=== PATIENT | female | born 1970 ===

== ENCOUNTER 2023-03-17 12:41 | Emergency (ER) | payer SELFPAY ==
[2023-03-17 12:47] VITALS: BP 185/98
[2023-03-17 13:57] LABS: BASOPHILS % (AUTO) 1 % (0-10); EOSINOPHILS # (AUTO) 0.2 10^3/uL (0.0-0.3); EOSINOPHILS % (AUTO) 4 % (0-10); HEMATOCRIT 39 % (35-52); HEMOGLOBIN 13.4 g/dL (11.5-16.0); LYMPHOCYTES # (AUTO) 2.1 10^3/uL (1.0-4.0); LYMPHOCYTES % (AUTO) 34 % (12-44); MEAN CORPUSCULAR HEMOGLOBIN 33 pg (25-34); MEAN CORPUSCULAR HGB CONC 34 g/dL (32-36); MEAN CORPUSCULAR VOLUME 97 fL (80-99); MEAN PLATELET VOLUME 11.2 fL (9.0-12.2); MONOCYTES # (AUTO) 0.5 10^3/uL (0.0-1.0); MONOCYTES % (AUTO) 8 % (0-12); NEUTROPHILS # (AUTO) 3.4 10^3/uL (1.8-7.8); NEUTROPHILS % (AUTO) 54 % (42-75); PLATELET COUNT 144 10^3/uL (130-400); WHITE BLOOD COUNT 6.2 10^3/uL (4.3-11.0)
[2023-03-17 14:01] LABS: ALBUMIN 3.9 GM/DL (3.2-4.5)
[2023-03-17 14:02] LABS: CHLORIDE 106 MMOL/L (98-107); POTASSIUM 3.9 MMOL/L (3.6-5.0); SODIUM 137 MMOL/L (135-145)
[2023-03-17 14:03] LABS: AMYLASE 59 U/L (25-125); CALCIUM 9.1 MG/DL (8.5-10.1); INR 1.1 (0.8-1.4)
[2023-03-17 14:04] LABS: GLUCOSE 235 MG/DL (70-105); TOTAL PROTEIN 7.7 GM/DL (6.4-8.2)
[2023-03-17 14:05] LABS: CARBON DIOXIDE 19 MMOL/L (21-32)
--- NOTE | 2023-03-17 14:05 | ED General ---
General Chief Complaint: Dizziness/Syncope Stated Complaint: STROKE-LIKE SYMPTOMS Nursing Triage Note: Patient c/o dizziness, being light-headed, vomiting, nausea, and headache that started 1 wk ago. Patient denies vomiting in last 24 hrs or different diarrhea than her normal. Patient denies any chest pain or shortness of breath. Patient states some of her symptoms have improved last couple days. Patient denies any weakness to any extremity. Patient denies any fevers. Patient states she was Dx. with a sinus infection earlier this week. Patient states she had a negative Covid test earlier this week. Source of Information: Patient History of Present Illness Date Seen by Provider: Mar 17, 2023 Time Seen by Provider: 13:40 Initial Comments PT ARRIVES VIA POV WITH /MALE S.O. SHE WAS SENT HERE BY [facility] PT STATES SHE HAS BEEN SICK FOR THE LAST WEEK WITH: -DIZZINESS AND FEELING OFF BALANCE -HAD FEVER OF 99.6 LAST WEEKEND, NONE SINCE -HEADACHE OF AND ON TO BACK OF HEAD--NOT NOW -NAUSEA/VOMITING--NO VOMITING SINCE LAST MONDAY. STILL HAS OCCASIONAL NAUSEA OFF AND ON -HAS CHRONIC DIARRHEA--UNCHANGED;STATES THIS IS FROM [place] -HAS CHRONIC BODY ACHES--UNCHANGED PT WENT TO [facility] ON MONDAY AND WAS TOLD SHE HAD A SINUS INFECTION, AND WAS PRESCRIBED MECLIZINE AND TOLD TO TAKE FLONASE AND ZYRTEC. NO ANTIBIOTIC PRESCRIBED. COVID TEST NEGATIVE SHE TOOK MECLIZINE ON MONDAY BUT NOT SINCE--STATES IT MAKES HER TOO TIRED. SHE STATES IT DID HELP WITH THE DIZZINESS. NO CHEST PAIN NO SHORTNESS OF BREATH NO ABDOMINAL PAIN NO PARESTHESIAS OR MOTOR DEFICITS NO PALPITATIONS NO SYNCOPE PT IS DIABETIC ON METFORMIN--BLOOD GLUCOSE 254 AT [facility] SHE HAS HTN NO OTHER CHRONIC MEDICAL PROBLEMS PT IS MENOPAUSAL SHE HAS HAD PRIOR CHOLECYSTECTOMY DENIES SMOKING, ALCOHOL OR DRUG USE COVID VACCINES X 3 PCP: [facility] Allergies and Home Medications Allergies Coded Allergies: No Known Allergies (Verified Allergy, Unknown, 03/17/23) Patient Home Medication List Home Medication List Reviewed: Yes Cefdinir (Cefdinir) 300 Mg Capsule, 300 MG PO BID Prescribed by: MILLIE OVALLES on 03/17/23 1442 Scopolamine (Transderm-Scop) 1 Mg/3 Day Patch.td72, 1 EACH TD Q72H Prescribed by: MILLIE OVALLES on 03/17/23 1442 Review of Systems Review of Systems Constitutional: see HPI, dizziness, fever EENTM: see HPI, no symptoms reported; No ear pain, No nose congestion, No throat pain Respiratory: no symptoms reported Cardiovascular: no symptoms reported Gastrointestinal: see HPI Genitourinary: no symptoms reported Musculoskeletal: see HPI Skin: no symptoms reported Psychiatric/Neurological: See HPI Hematologic/Lymphatic: No Symptoms Reported Immunological/Allergic: no symptoms reported Past Rnofxwe-Zrpsku-Kigxkr Hx Patient Social History Tobacco Use?: No Use of E-Cig and/or Vaping dev: No Substance use?: No Alcohol Use?: No Immunizations Up To Date Influenza Vaccine Up-to-Date: Yes; Up-to-Date Past Medical History Surgery/Hospitalization HX: DM, HTN Surgeries: Yes Gallbladder Respiratory: No Cardiac: Yes Hypertension 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 oz. 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 ) Skin: Normal Color, Warm/Dry; No Rash Progress/Results/Core Measures Suspected Sepsis SIRS Temperature: Pulse: 83 Respiratory Rate: 14 Laboratory Tests 03/17/23 13:03: White Blood Count 6.2 Blood Pressure 185 /98 Mean: 127 Laboratory Tests 03/17/23 13:03: Creatinine 0.63, INR Comment 1.1, Platelet Count 144, Total Bilirubin 0.4 Results/Orders Lab Results Laboratory Tests Test 03/17/23 13:03 03/17/23 13:57 03/17/23 13:59 Range/Units White Blood Count 6.2 4.3-11.0 10^3/uL Red Blood Count 4.08 3.80-5.11 10^6/uL Hemoglobin 13.4 11.5-16.0 g/dL Hematocrit 39 35-52 % Mean Corpuscular Volume 97 80-99 fL Mean Corpuscular Hemoglobin 33 25-34 pg Mean Corpuscular Hemoglobin Concent 34 32-36 g/dL Red Cell Distribution Width 13.3 10.0-14.5 % Platelet Count 144 130-400 10^3/uL Mean Platelet Volume 11.2 9.0-12.2 fL Immature Granulocyte % (Auto) 0 % Neutrophils (%) (Auto) 54 42-75 % Lymphocytes (%) (Auto) 34 12-44 % Monocytes (%) (Auto) 8 0-12 % Eosinophils (%) (Auto) 4 0-10 % Basophils (%) (Auto) 1 0-10 % Neutrophils # (Auto) 3.4 1.8-7.8 10^3/uL Lymphocytes # (Auto) 2.1 1.0-4.0 10^3/uL Monocytes # (Auto) 0.5 0.0-1.0 10^3/uL Eosinophils # (Auto) 0.2 0.0-0.3 10^3/uL Basophils # (Auto) 0.0 0.0-0.1 10^3/uL Immature Granulocyte # (Auto) 0.0 0.0-0.1 10^3/uL Prothrombin Time 14.0 12.2-14.7 SEC INR Comment 1.1 0.8-1.4 Activated Partial Thromboplast Time 34 24-35 SEC Sodium Level 137 135-145 MMOL/L Potassium Level 3.9 3.6-5.0 MMOL/L Chloride Level 106 98-107 MMOL/L Carbon Dioxide Level 19 L 21-32 MMOL/L Anion Gap 12 5-14 MMOL/L Blood Urea Nitrogen 7 7-18 MG/DL Creatinine 0.63 0.60-1.30 MG/DL Estimat Glomerular Filtration Rate 107 BUN/Creatinine Ratio 11 Glucose Level 235 H 70-105 MG/DL Calcium Level 9.1 8.5-10.1 MG/DL Corrected Calcium 9.2 8.5-10.1 MG/DL Magnesium Level 1.6 1.6-2.4 MG/DL Total Bilirubin 0.4 0.1-1.0 MG/DL Aspartate Amino Transf (AST/SGOT) 64 H 5-34 U/L Alanine Aminotransferase (ALT/SGPT) 84 H 0-55 U/L Alkaline Phosphatase 203 H 40-136 U/L Troponin I < 0.028 <0.028 NG/ML Total Protein 7.7 6.4-8.2 GM/DL Albumin 3.9 3.2-4.5 GM/DL Amylase Level 59 25-125 U/L Lipase 50 8-78 U/L TSH [place] Testing 3.10 0.35-4.94 UIU/ML Influenza Type A (RT-PCR) Not Detected Not Detecte Influenza Type B (RT-PCR) Not Detected Not Detecte SARS-CoV-2 RNA (RT-PCR) Not Detected Not Detecte Urine Color YELLOW Urine Clarity CLEAR Urine pH 5.5 5-9 Urine Specific [place] <=1.005 1.016-1.022 Urine Protein NEGATIVE NEGATIVE Urine Glucose (UA) TRACE H NEGATIVE Urine Ketones NEGATIVE NEGATIVE Urine Nitrite NEGATIVE NEGATIVE Urine Bilirubin NEGATIVE NEGATIVE Urine Urobilinogen 0.2 < = 1.0 MG/DL Urine Leukocyte Esterase NEGATIVE NEGATIVE Urine RBC (Auto) NEGATIVE NEGATIVE Urine RBC NONE /HPF Urine WBC NONE /HPF Urine Squamous Epithelial Cells 0-2 /HPF Urine Crystals NONE /LPF Urine Bacteria NEGATIVE /HPF Urine Casts NONE /LPF Urine Mucus NEGATIVE /LPF Urine Culture Indicated NO My Orders Orders - MILLIE OVALLES DO Ed Iv/Invasive Line Start (03/17/23 13:50) Ekg Tracing (03/17/23 13:50) Monitor-Rhythm Ecg Trace Only (03/17/23 13:50) Ct Head/Maxillofacial Wo (03/17/23 13:50) Amylase (03/17/23 13:50) Cbc With Automated Diff (03/17/23 13:50) Comprehensive Metabolic Panel (03/17/23 13:50) Lipase (03/17/23 13:50) Magnesium (03/17/23 13:50) Protime With Inr (03/17/23 13:50) Partial Thromboplastin Time (03/17/23 13:50) Thyroid Analyzer (03/17/23 13:50) Ua Culture If Indicated (03/17/23 13:50) Troponin I [place] (03/17/23 13:50) Chest 1 View, Ap/Pa Only (03/17/23 13:50) Covid 19 Inhouse Test (03/17/23 13:50) Influenza A And B By Pcr (03/17/23 13:50) Scopolamine Patch (Scopolamine Patch) (03/17/23 14:45) Ceftriaxone Iv/Im (Ceftriaxone Iv/Im) (03/17/23 14:45) Medications Given in ED Current Medications Medications Dose Ordered Sig/Gabrielle Route Start Time Stop Time Status Last Admin Dose Admin Ceftriaxone Sodium 1000 mg/ Sodium Chloride 50 ml @ 100 mls/hr ONCE ONCE IV 03/17/23 14:45 03/17/23 15:14 DC 03/17/23 14:46 100 MLS/HR Scopolamine 1.5 mg ONCE ONCE TD 03/17/23 14:45 03/17/23 14:46 DC 03/17/23 14:47 1.5 MG Vital Signs/I&O 03/17/23 12:47 Temp 37.0 Pulse 83 Resp 14 B/P (MAP) 185/98 (127) O2 Delivery Room Air Capillary Refill : Blood Pressure Mean: 127 Progress Note : Progress Note UNEVENTFUL ER STAY VITALS STABLE, AFEBRILE BP DOWN TO 150'S/90'S AT DISMISSAL. PT HAS NOT TAKEN BP MEDICATION TODAY GIVEN: -SCOPOLAMINE PATCH -ROCEPHIN GLUCOSE 235, MILDLY ELEVATED LFT'S, LABS OTHERWISE UNREMARKABLE. COVID AND FLU NEGATIVE CT SCANS SHOW MAXILLARY SINUSITIS, OTHERWISE NORMAL DISCUSSED TEST RESULTS, ANTICIPATED COURSE, SYMPTOMATIC TREATMENT, MEDICATIONS, NEED FOR FOLLOW UP AND RETURN PRECAUTIONS NO PRIOR VISITS HERE ECG Initial ECG Impression Date: Mar 17, 2023 Initial ECG Impression Time: 14:37 Initial ECG Rate: 77 Initial ECG Rhythm: Normal Sinus Initial ECG Intervals: Normal Initial ECG Impression: Normal Initial ECG Comparisson: No Previous ECG Available Comment INTERPRETED BY ME Diagnostic Imaging Comments CT HEAD/MAXILLOFACIALS--PER RADIOLOGIST REPORT AT 1430 COMPARISON: No prior studies are available for comparison. CT HEAD: The ventricles and sulci are within normal limits. No sulcal effacement or midline shift is identified. No acute intra-axial or extra-axial hemorrhage is detected. Cisterns are patent. IMPRESSION: No acute intracranial process is detected. CT FACE: There is mucosal thickening of the maxillary sinuses bilaterally but no air-fluid levels are seen. The ethmoid air cells and sphenoid sinus are well aerated. The frontal sinus is well aerated. The mastoids are aerated. Nasal septum is midline. IMPRESSION: 1. Mild maxillary sinus mucosal thickening. The study is otherwise unremarkable. CXR--PER RADIOLOGIST REPORT AT 1430 FINDINGS: The lungs are clear without edema or pneumonia. No pleural effusion or pneumothorax. Heart size is normal. IMPRESSION: 1. Clear lungs. Reviewed: Reviewed by Me Departure Impression Primary Impression: Sinusitis Additional Impressions: Dizziness HTN (hypertension) Disposition: HOME, SELF-CARE Condition: Stable Departure-Patient Inst. Decision time for Depature: 14:39 Referrals: HILARIO MARK APRN (PCP/Family) Primary Care Physician Patient Instructions: Sinusitis, Adult ED, DASH Diet, Dizziness, Adult ED, High Blood Pressure ED Add. Discharge Instructions: TYLENOL AND MOTRIN FOR PAIN OR FEVER TAKE FLONASE AND ZYRTEC DAILY CONTINUE YOUR REGULAR MEDICATIONS PRESCRIBED SLOW POSITION CHANGES LEAVE SCOPOLAMINE PATCH IN PLACE FOR 3 DAYS FOLLOW UP WITH [facility] IN 4-5 DAYS IF NO BETTER All discharge instructions reviewed with patient and/or family. Voiced understanding. Scripts Scopolamine (Transderm-Scop) 1 Mg/3 Day Patch.td72 1 EACH TD Q72H, #3 PATCH Prov: MILLIE OVALLES DO 03/17/23 Cefdinir (Cefdinir) 300 Mg Capsule 300 MG PO BID, #20 CAP Prov: MILLIE OVALLES DO 03/17/23 MILLIE OVALLES DO Mar 17, 2023 14:05
[2023-03-17 14:06] LABS: BILIRUBIN,TOTAL 0.4 MG/DL (0.1-1.0)
[2023-03-17 14:07] LABS: ALKALINE PHOSPHATASE 203 U/L (40-136)
[2023-03-17 14:08] LABS: CREATININE SERUM 0.63 MG/DL (0.60-1.30); GFR ESTIMATED 107
[2023-03-17 14:09] LABS: BUN/CREATININE RATIO 11
[2023-03-17 14:10] LABS: ALANINE AMINOTRANSFERASE 84 U/L (0-55); MAGNESIUM 1.6 MG/DL (1.6-2.4)
[2023-03-17 14:11] LABS: LIPASE 50 U/L (8-78)
[2023-03-17 14:21] LABS: CLARITY,URINE CLEAR; COLOR,URINE YELLOW; GLUCOSE, URINE (UA) TRACE (NEGATIVE); KETONES,URINE NEGATIVE (NEGATIVE); PH,URINE 5.5 (5-9); PROTEIN,URINE NEGATIVE (NEGATIVE)
[2023-03-17 14:22] LABS: BACTERIA,URINE NEGATIVE /HPF; BILIRUBIN,URINE NEGATIVE (NEGATIVE); LEUKOCYTE ESTERASE ,URINE NEGATIVE (NEGATIVE); NITRITE,URINE NEGATIVE (NEGATIVE); SQUAMOUS EPITHELIAL CELL,UR 0-2 /HPF
--- NOTE | 2023-03-17 14:24 | Diagnostic Imaging Report ---
EXAMINATION: Chest 1 view HISTORY: Dizziness COMPARISON: None available. FINDINGS: The lungs are clear without edema or pneumonia. No pleural effusion or pneumothorax. Heart size is normal. IMPRESSION: 1. Clear lungs. Dictated by: Dictated on workstation # [id number]
--- NOTE | 2023-03-17 14:26 | Diagnostic Imaging Report ---
PROCEDURE: CT head and maxillofacial without contrast. TECHNIQUE: Multiple contiguous axial images were obtained through the head and facial bones without the use of intravenous contrast. Auto Exposure Controls were utilized during the CT exam to meet ALARA standards for radiation dose reduction. INDICATION: Dizziness and lightheadedness as well as headache. COMPARISON: No prior studies are available for comparison. CT HEAD: The ventricles and sulci are within normal limits. No sulcal effacement or midline shift is identified. No acute intra-axial or extra-axial hemorrhage is detected. Cisterns are patent. IMPRESSION: No acute intracranial process is detected. CT FACE: There is mucosal thickening of the maxillary sinuses bilaterally but no air-fluid levels are seen. The ethmoid air cells and sphenoid sinus are well aerated. The frontal sinus is well aerated. The mastoids are aerated. Nasal septum is midline. IMPRESSION: 1. Mild maxillary sinus mucosal thickening. The study is otherwise unremarkable. Dictated by: Dictated on workstation # [id number]
[2023-03-17] MEDS ORDERED: SCOP1PAT10 TD (14:42)
[2023-03-17] MEDS ORDERED: CEFD300C3 PO (14:42)
[2023-03-17] MEDS ORDERED: cefTRIAXone IV/IM 1,000 MG in NS (IVPB) 50 ML 50 ML IV ONE (14:45)
[2023-03-17] MEDS ORDERED: SCOPOLAMINE 1.5 MG PATCH TD ONE (14:45)
== END 2023-03-17 15:20 | disposition home or self-care (01) ==
LOC: ER 12:44
DX: J32.0 Chronic maxillary sinusitis (principal); E11.9 Type 2 diabetes mellitus without complications; I10 Essential (primary) hypertension; Z79.84 Long term (current) use of oral hypoglycemic drugs; Z20.822 Contact with and (suspected) exposure to COVID-19
CPT/HCPCS: 36415; 70450; 70486; 71045; 80053; 81000; 82150; 83690; 83735; 84443; 84484; 85025; 85610; 85730; 87636; 93005; 93041